=== PATIENT | female | born 1990 | race Caucasian/White ===

== ENCOUNTER 2024-03-08 08:32 | Outpatient (CLI) | payer OTHER, SELFPAY ==
[2024-03-08 08:41] LABS: MANUAL DIFFERENTIAL MANUAL DIFFERENTIAL (MANUAL DIFF)
[2024-03-08 09:06] LABS: Basophils # 0.1 K/mm3 (0-0.2); Basophils % 0.8 % (0.1-2.0); Eosinophils # 0.2 K/mm3 (0.0-0.4); Eosinophils % 1.8 % (0.1-12.0); Hematocrit 41.8 % (37.0-47.0); Hemoglobin 13.3 g/dL (12.2-16.2); Lymphocytes # 2.2 K/mm3 (0.7-4.5); Mean Corpuscular HGB Conc 31.9 g/dL (31.8-35.4); Mean Corpuscular Hemoglobin 27.7 pg (27.0-31.2); Mean Corpuscular Volume 86.7 fl (81-99); Mean Platelet Volume 11.8 fl (7.4-10.4); Monocytes # 0.4 K/mm3 (0.1-1.0); Monocytes % 4.6 % (1.7-9.3); Neutrophils # 5.2 K/mm3 (1.8-7.8); Neutrophils % 64.7 % (37.0-80.0); Platelet Count 192 K/mm3 (142-424); Red Blood Count 4.82 M/mm3 (4.20-5.40); Red Cell Distribution Width 14.9 % (11.5-17.5)
[2024-03-08 09:42] LABS: Albumin Level 3.9 g/dl (3.5-5.0); Anion Gap 9.4 mEq/L (5-15); Chloride 108 mmol/L (98-107); Potassium 4.4 mmoL/L (3.5-5.1); Sodium 136 mmol/L (136-145); VLDL Cholesterol 26 mg/dL (0-40)
[2024-03-08 09:52] LABS: Direct LDL Cholesterol 105.57 mg/dL (100-129)
[2024-03-08 09:54] LABS: Triiodothryronine (T3) Uptake 33 % (23.5-40.5)
[2024-03-08 09:55] LABS: Free Thyroxine Index 2.9 ug/dL (5.93-13.13); T4 (Thyroxine) 8.7 ug/dl (5.53-11.0)
[2024-03-08 10:03] LABS: Alanine Aminotransferase 30 U/L (12-78); Alkaline Phosphatase 125 U/L (38-126); Aspartate Amino Transferase 28 U/L (14-36); Bilirubin,Total 1.1 mg/dl (0.2-1.3); Blood Urea Nitrogen 12 mg/dl (7-17); Carbon Dioxide 23 mmol/L (22.0-30.0); Estimated Glomerular Filt Rate 114 ml/min (>60); GFR (African American) 138 ML/MIN (>60)
[2024-03-08 10:04] LABS: Albumin/Globulin Ratio 1.2 (1.1-1.8); Calcium 8.8 mg/dl (8.4-10.2); Chol/HDL Ratio 3.8 (1-3.5); Cholesterol 195 mg/dl (140-200); Globulin 3.2 g/dL (1.3-3.2); Glucose 112 mg/dl (74-100); HDL Cholesterol 52 mg/dl (40-60); Iron 59 ug/dL (37-170); Total Protein,Serum 7.1 g/dl (6.3-8.2); Triglycerides 132 mg/dl (30-150)
[2024-03-08 10:09] LABS: Thyroid Stimulating Hormone 3.28 uIU/mL (0.465-4.68)
[2024-03-08 10:14] LABS: Total Iron Binding Capacity 347 ug/dL (265-497)
[2024-03-08 14:15] LABS: Eosinophils % 1 % (0-3); Lymphocytes % 29 % (10-50); Monocytes % 4 % (2-9); Neutrophils % 66 % (42-76); Total Cells Counted 100
[2024-03-08 14:16] LABS: Platelet Estimate Normal; RBC Morphology Normal
[2024-03-09 08:30] LABS: Thyroid Peroxidase Antibodies <9 IU/mL (0-34)
[2024-03-10 06:15] LABS: Thyroid Stimulating Immunoglob <0.10 IU/L (0.00-0.55)
[2024-03-10 13:11] LABS: Calcium, Ionized 4.9 mg/dL (4.5-5.6)
[2024-03-12 06:05] LABS: D001-IgE D pteronyssinus 0.28 kU/L (Class 0/I); D002-IgE D farinae 0.19 kU/L (Class 0/I); E001-IgE Cat Dander <0.10 kU/L (Class 0); E005-IgE Dog Dander <0.10 kU/L (Class 0); E072-IgE Mouse Urine <0.10 kU/L (Class 0); G002-IgE Bermuda Grass <0.10 kU/L (Class 0); G006-IgE Timothy Grass <0.10 kU/L (Class 0); I006-IgE Cockroach, German <0.10 kU/L (Class 0); Immunoglobulin E, Total 128 IU/mL (6-495); M001-IgE Penicillium chrysogen <0.10 kU/L (Class 0); M002-IgE Cladosporium herbarum <0.10 kU/L (Class 0); M003-IgE Aspergillus fumigatus <0.10 kU/L (Class 0); M006-IgE Alternaria alternata <0.10 kU/L (Class 0); T001-IgE Maple/Box Elder <0.10 kU/L (Class 0); T003-IgE Common Silver Birch <0.10 kU/L (Class 0); T006-IgE Cedar, Mountain <0.10 kU/L (Class 0); T007-IgE Oak, White <0.10 kU/L (Class 0); T008-IgE Elm, American <0.10 kU/L (Class 0); T010-IgE Walnut <0.10 kU/L (Class 0); T011-IgE Maple Leaf Sycamore <0.10 kU/L (Class 0); T014-IgE Cottonwood <0.10 kU/L (Class 0); T015-IgE Ash, White <0.10 kU/L (Class 0); T022-IgE Pecan, Hickory <0.10 kU/L (Class 0); T070-IgE White Mulberry <0.10 kU/L (Class 0); W001-IgE Ragweed, Short <0.10 kU/L (Class 0); W011-IgE Thistle, Russian <0.10 kU/L (Class 0); W014-IgE Pigweed, Common <0.10 kU/L (Class 0); W018-IgE Sheep Sorrel <0.10 kU/L (Class 0)
== END 2024-03-08 23:59 | disposition home or self-care (01) ==
LOC: LAB 08:40
PROVIDERS: PCP Internal Medicine; Visit Provider Nurse Practitioner
DX: R21 Rash and other nonspecific skin eruption (principal)
CPT/HCPCS: 36415; 80053; 80061; 82330; 82785; 83540; 83550; 84436; 84443; 84445; 84479; 85007; 85014; 85018; 85048; 85049; 86003; 86376

== ENCOUNTER 2024-07-27 06:21 | Outpatient (CLI) | payer OTHER, SELFPAY ==
--- NOTE | 2024-07-27 06:35 | CT_ITS ---
FINAL REPORT TECHNIQUE: Thin section axial images were obtained through the paranasal sinuses without contrast. Coronal and sagittal reconstruction images were obtained from the axial data. Exam was performed using dose reduction techniques. CLINICAL HISTORY: sinus pressure FINDINGS: There is mucoperiosteal thickening of the bilateral maxillary sinuses with air-fluid levels bilaterally. There is mucosal thickening of the sphenoid sinus, ethmoid air cells, and frontal sinus. The right maxillary infundibulum is occluded by mucoperiosteal thickening. The left is patent. There is very mild right nasal septal deviation. The mastoid air cells are clear. There is no acute osseous abnormality. Remaining soft tissues are within normal limits. IMPRESSION: Acute bilateral maxillary sinusitis. Chronic pansinusitis. Authenticated and ERN
== END 2024-07-27 23:59 | disposition home or self-care (01) ==
LOC: RAD 06:22
PROVIDERS: PCP Internal Medicine; Visit Provider Nurse Practitioner
DX: J32.9 Chronic sinusitis, unspecified (principal)
CPT/HCPCS: 70486

== ENCOUNTER 2024-07-30 14:51 | Outpatient (CLI) | payer OTHER, SELFPAY ==
[2024-07-30 16:00] LABS: Basophils # 0.1 K/mm3 (0-0.2); Basophils % 0.7 % (0.1-2.0); Eosinophils # 0.2 K/mm3 (0.0-0.4); Eosinophils % 1.5 % (0.1-12.0); Hematocrit 39.2 % (37.0-47.0); Hemoglobin 12.9 g/dL (12.2-16.2); Lymphocytes # 3.1 K/mm3 (0.7-4.5); Lymphocytes % 29.9 % (10-50); Mean Corpuscular HGB Conc 32.9 g/dL (31.8-35.4); Mean Corpuscular Hemoglobin 28.2 pg (27.0-31.2); Mean Corpuscular Volume 85.6 fl (81-99); Mean Platelet Volume 13.8 fl (7.4-10.4); Monocytes # 0.8 K/mm3 (0.1-1.0); Monocytes % 8.2 % (1.7-9.3); Neutrophils # 6.1 K/mm3 (1.8-7.8); Neutrophils % 59.5 % (37.0-80.0); Platelet Count 216 K/mm3 (142-424); Red Blood Count 4.58 M/mm3 (4.20-5.40); Red Cell Distribution Width 13.2 % (11.5-17.5); White Blood Count 10.3 K/mm3 (4.8-10.8)
[2024-07-30 16:26] LABS: Albumin Level 4.2 g/dl (3.5-5.0); Chloride 106 mmol/L (98-107); Potassium 4.1 mmoL/L (3.5-5.1); Sodium 138 mmol/L (136-145)
[2024-07-30 16:28] LABS: Blood Urea Nitrogen 15 mg/dl (7-17); Estimated Glomerular Filt Rate 82 ml/min (>60); GFR (African American) 99 ML/MIN (>60)
[2024-07-30 16:29] LABS: Alanine Aminotransferase 47 U/L (12-78); Alkaline Phosphatase 140 U/L (38-126); Anion Gap 13.1 mEq/L (5-15); Aspartate Amino Transferase 56 U/L (14-36); Bilirubin,Direct 0.3 mg/dl (0.0-0.4); Bilirubin,Indirect 0.4 mg/dL (0.0-0.9); Bilirubin,Total 0.7 mg/dl (0.2-1.3); Bilirubin,Unconjugated 0.4 mg/dL (0.0-1.1); Calcium 9.1 mg/dl (8.4-10.2); Carbon Dioxide 23 mmol/L (22.0-30.0); Cholesterol 190 mg/dl (140-200); Glucose 106 mg/dl (74-100); Total Protein,Serum 6.8 g/dl (6.3-8.2); Triglycerides 323 mg/dl (30-150)
[2024-07-30 16:30] LABS: Magnesium 1.9 mg/dl (1.6-2.3)
[2024-07-30 16:41] LABS: Direct LDL Cholesterol 102.01 mg/dL (100-129)
[2024-07-30 16:43] LABS: Free T4 (Free Thyroxine) 0.86 ng/dl (0.78-2.19)
[2024-07-30 16:59] LABS: Chol/HDL Ratio 4.3 (1-3.5); HDL Cholesterol 44 mg/dl (40-60); VLDL Cholesterol 65 mg/dL (0-40)
[2024-07-30 17:03] LABS: Thyroid Stimulating Hormone 2.16 uIU/mL (0.465-4.68)
[2024-07-30 17:20] LABS: Hemoglobin A1C 5.8 % (4.0-6.0)
== END 2024-07-30 23:59 | disposition home or self-care (01) ==
LOC: LAB 14:55
PROVIDERS: PCP Internal Medicine; Visit Provider Physician Assistant
DX: R06.00 Dyspnea, unspecified (principal); I10 Essential (primary) hypertension; R63.1 Polydipsia; R63.5 Abnormal weight gain
CPT/HCPCS: 80048; 80061; 80076; 83036; 83735; 84439; 84443; 85025

== ENCOUNTER 2024-08-19 08:53 | Outpatient (CLI) | payer OTHER, SELFPAY ==
--- NOTE | 2024-08-19 08:58 | XR_ITS ---
FINAL REPORT CLINICAL HISTORY: Lt Knee Pain COMPARISON: None FINDINGS: LEFT KNEE 3 views of the left knee were obtained. There is no acute fracture or dislocation. There are mild hypertrophic changes at the medial joint margin and along the undersurface of the patella. Soft tissues are unremarkable. IMPRESSION: Mild changes of osteoarthritis without acute bony abnormality. Reviewed, Interpreted and Dictated by Ivan Diaz MD Transcribed by Serena Najera Authenticated and [facility]
== END 2024-08-19 23:59 | disposition home or self-care (01) ==
LOC: RAD 08:54
PROVIDERS: PCP Internal Medicine; Visit Provider Orthopaedic Surgery
DX: M25.562 Pain in left knee (principal)
CPT/HCPCS: 73562

== ENCOUNTER 2025-04-11 15:15 | Outpatient (CLI) | payer OTHER, SELFPAY ==
--- OUTSIDE RECORDS SUMMARY | 2025-04-11 15:18 | XMS_ITS | Clinical Summary ---
Author Organization [facility] Address [address] [place] [address] Care Team Providers Care Dough Raiser Name Role Phone Philip Ignacio MD Primary Care Provid er Allergies No known active allergies Medications NIFEdipine CC (ADALAT CC) 30 MG 24 hr tablet Take 1 tablet by mouth 2 (Two) Times a Day for 2 doses. 2 tablet 07/20/2023 11:57 AM EST 07/20/2023 Active Active Problems Problem Noted Date Diagnosed Date Hypertension in , preeclampsia, severe, delivered 07/18/2023 Status post section 07/15/2023 Status post bilateral salpingectomy 07/15/2023 Uterine size-date discrepancy in third trimester 06/10/2023 Chronic hypertension affecting 023 Assessment & Plan (07/10/2023 3:06 PM EST): Currently on labetalol 100 mg 1-2 times per day. Blood pressure 135/93 and 139/77. Patient currently scheduled for section on July 15. Patient with normal serum labs on July 07. Urine dip today with 3-4+ protein. Patient's growth ultrasound is normal today. Assessment & Plan (06/10/2023 8:40 AM EST): Patient returns today for follow-up with a history of chronic hypertension. She is currently prescribed labetalol 100 mg 3 times daily. She reports that she is not taking it but checking her blood pressures regularly at home and that her blood pressures are normal at home. Blood pressure today is 136/84. She has no protein in her urine. Patient was counseled regarding signs and symptoms of preeclampsia including headache scotomata epigastric pain and decreased movement. She will contact her OB provider immediately if she notices any decreased movement or any signs and symptoms of preeclampsia. Patient had an abnormal 1 hour glucose screen however her 3-hour was entirely normal. She reports that her 3-hour test was done just a couple weeks ago. Ultrasound today demonstrates a baby overall at 78th percentile but with a large AC. We will rescan the patient again in 4 weeks to assess weight heading into delivery time. The patient's chronic hypertension even though she has voluntarily stopped taking her medication we would recommend starting testing beginning now at 32 weeks gestation for chronic hypertension. Assessment & Plan (04/15/2023 8:34 AM EDT): Patient presents today for follow-up growth ultrasound. Patient reports taking the labetalol 100 mg daily sometimes twice daily. Blood pressure today 149/72 and on repeat was 133/75. She is not currently taking a blood pressure log. We discussed recent Chap trial and discussed goals of blood pressures of 140/90. Patient will return in 4 weeks for repeat growth ultrasound and completion of anatomy Obesity in , antepartum 02/04/2023 Assessment & Plan (04/15/2023 8:35 AM EDT): Patient presents today for completion of anatomy. Aortic arch, ductal arch and profile still suboptimal after today's ultrasound. Patient return in 4 weeks for ultrasound. Previous section 05/12/2020 Morbid obesity with BMI of 40.0-44.9, adult 04/27 Delivery of by section 2019 History of pre-eclampsia Overview (12/17/2022): with G1 Assessment & Plan (04/15/2023 8:08 AM EDT): Patient currently on aspirin for preeclampsia prevention. Resolved Problems Problem Noted Date Diagnosed Date Resolved Date 07/11/2023 07/15/2023 wound disruption 06/29/2020 Immunizations Immunization Administration Dates Next Due Fluzone (or Fluarix & Flulaval for VFC) >6mos Hep B, Adolescent or Pediatric 12/08/2000,2000 MMR 11/10/2000 Tdap 11/04/2014,12/10/2005 Family History Medical History Relation Name Comments Hypertension Father Breast cancer Mother at age 52 from breast cancer Colon cancer Paternal Grandfather Ovarian cancer Neg Hx Uterine cancer Neg Hx Relation Name Status Comments Father Mother Gastroparesis Paternal Grandfather Social History Tobacco Use Types Packs/Day Years Used Date Smoking Tobacco: Never Smokeless Tobacco: Never Tobacco Cessation:Counseling Given: Not Answered Alcohol Use Standard Drinks/Week Comments No 0 (1 standard drink = 0.6 oz pur e alcohol) [facility] Utilities Answer Date Recorded In the past 12 months has th e [employer], gas, oil, or water company threatened to shut off services in your home? No 07/15/2023 AUDIT-C Answer Date Recorded Q1: How often do you have a drink containing alcohol? Never 07/15/2023 Q2: How many drinks containi ng alcohol do you have on a typical day when you are drinking? Patient does not drink Q3: How often do you have si x or more drinks on one occasion? Never 07/15/2023 Overall Financial Resource Strain (CARDIA) Answe r Date Recorded How hard is it for you to pa y for the very basics like food, housing, medical care, and heating? Not hard at all 07/15/2023 PHQ-2 Answer Date Recorded Retired PHQ-9: Brief Depression Severity Measure Score 0 07/15/2023 Exercise Vital Sign Answer Date Recorde d On average, how many days pe r week do you engage in moderate to strenuous exercise (like a brisk walk)? 4 days 07/15/2023 On average, how many minutes do you engage in exercise at this level? 40 min 07/15/2023 Hunger Vital Sign Answer Date Recorded Within the past 12 months, y ou worried that your food would run out before you got the money to buy more. Never true 07/15/20 23 Within the past 12 months, t he food you bought just didn't last and you didn't have money to get more. Never true 07/15/2023 PRAPARE - Transportation Answer Date Re corded In the past 12 months, has l ack of transportation kept you from medical appointments or from getting medications? No 06/27 In the past 12 months, has l ack of transportation kept you from meetings, work, or from getting things needed for daily living? No 07/15/2023 [place] Depression Scale Answer Date Recorded Retired [place] Depression Score 0 09/02/2023 Retired EPD Scale: Thought of Harming Self Unrec ognized value 09/02/2023 Abuse Screen Answer Date Recorded Feels Unsafe at Home or Work/School no 07/15/2023 Feels Threatened by Someone no 06/27 Does Anyone Try to Keep You From Having Contact with Others or Doing Things Outside Your Home? no 07/15/2023 Physical Signs of Abuse Present no 07/15/2023 Housing Stability Answer Date Recorded Current Living Arrangements home 06/27 Potentially Unsafe Housing Conditions none 07/15/2023 Family and Community Support Answer Nain e Recorded If for any reason you need h elp with day-to-day activities such as bathing, preparing meals, shopping, managing finances, etc., do you get the help you need? I get all the help I need 07/15/2023 How often do you feel lonely or isolated from those around you? Never 07/15/2023 Employment Answer Date Recorded Do you want help finding or keeping work or a job? I do not need or want help 07/15/2023 Disabilities Answer Date Recorded Difficulty Concentrating, Remembering or Making Decisions no 07/15/2023 Difficulty Managing Errands Independently no 07/15/2023 Education Answer Date Recorded Do you want help with school or training? For example, starting or completing job training or getting a high school diploma, GED or equivalent No 07/15/2023 Preferred Language Micronesian 07/15/2023 PHQ-2 Answer Date Recorded Retired PHQ-9: Brief Depression Severity Measure Score 0 07/15/2023 Comments No Sex and Gender Information Value Date Recorded Sex Assigned at Not on file Legal Sex Female 1:25 PM EDT Gender Identity Not on file Sexual Orientation Not on file Last Filed Vital Signs Vital Sign Reading Time Taken Comments Blood Pressure 128/88 09/02/2023 2:11 PM EST Pulse 80 07/20/2023 9:11 AM EST Temperature 36.7 C (98 F) 07/20/2023 9:11 AM EST Respiratory Rate 18 07/20/2023 9:11 AM EST Oxygen Saturation 97% 07/19/2023 11:22 AM EST Inhaled Oxygen Concentration - - Weight 116 kg (256 lb 9.6 oz) 09/02/2023 2:11 PM EST Height 167.6 cm (5' 6 ) 09/02/2023 2:11 PM EST Body Mass Index 41.42 09/02/2023 2:11 PM EST Plan of Treatment Health Maintenance Due Date Last Done Comments Annual Gynecologic Pelvic an d Breast Exam 1989 ANNUAL PHYSICAL 10/23/2016 TDAP/TD VACCINES (3 - Td or Tdap) 11/04/2024 11/04/2014, 12/10/2005 COVID-19 Vaccine ( - 2024-2 6 season) 2025 05/04/2021, 04/06/2021 INFLUENZA VACCINE 04/27/2025 04/27/2020 HEPATITIS C SCREENING Completed 12/31/2022 , 06/08/2021 Pneumococcal Vaccine 0-49 Aged Out No longer eligible based on patient's age to complete this topic Medical Devices Implanted Type Area Management Manager Device Identifier Shelf Expiration Date Model / Serial / Lot Hemost Abs Surgicel Pwdr 3gm - [id number] Implanted:Qty : 1 on 05/12/2020 by Carolin Roberts MD at [facility] Implant N/A: Uterus ETHICON DIV OF J AND J [id number] / / [id number] Singh Adhs I/O Interceed Abs 3x4in - [id number] Implanted:Qty : 1 on 07/15/2023 by Maria M Chris MD at [facility] Implant N/A: Uterus ETHICON DIV OF J AND J 05/27/2027 [id number] / / [id number] Procedures Procedure Name Priority Date/Time Associated Diagnosis Comments OBSTETRIC PANEL Routine 12/31/2022 3:36 PM EDT care, antepartum from Last 3 Months or Most Recently Relevant to Health Maintenance Results * (ABNORMAL) Obstetric Panel (12/31/2022 3:36 PM EDT) Hepatitis B Surface Ag Negative Negative [facility] Hep C Virus Ab Non Reactive Non Reactive [facility] Comment: HCV antibody alone does not differentiate between previously resolved infection and active infection. Equivocal and Reactive HCV antibody results should be followed up with an HCV RNA test to support the diagnosis of active HCV infection. RPR Non Reactive Non Reactive [facility] Rubella Antibodies, IgG 2.30 Immune >0.99 index [facility] Comment: Non-immune <0.90 Equivocal 0.90 - 0.99 Immune >0.99 ABO Type A [facility] Rh Factor Positive [facility] Comment: Please note: Prior records for this patient's ABO / Rh type are not available for additional verification. Antibody Screen Negative Negative [facility] WBC 11.7(H) 3.4 - 10.8 x10E3/uL [facility] RBC 4.36 3.77 - 5.28 x10E6/uL [facility] Hemoglobin 12.7 11.1 - 15.9 g/dL [facility] Hematocrit 37.2 34.0 - 46.6 % [facility] MCV 85 79 - 97 fL [facility] MCH 29.1 26.6 - 33.0 pg [facility] MCHC 34.1 31.5 - 35.7 g/dL [facility] RDW 13.5 11.7 - 15.4 % [facility] Platelets 181 150 - 450 x10E3/uL [facility] Neutrophil Rel % 73 Not Estab. % [facility] Lymphocyte Rel % 19 Not Estab. % [facility] Monocyte Rel % 7 Not Estab. % [facility] Eosinophil Rel % 1 Not Estab. % [facility] Basophil Rel % 0 Not Estab. % [facility] Neutrophils Absolute 8.5(H) 1.4 - 7.0 x10E3/uL [facility] Lymphocytes Absolute 2.3 0.7 - 3.1 x10E3/uL [facility] Monocytes Absolute 0.8 0.1 - 0.9 x10E3/uL [facility] Eosinophils Absolute 0.1 0.0 - 0.4 x10E3/uL [facility] Basophils Absolute 0.0 0.0 - 0.2 x10E3/uL [facility] Immature Granulocyte Rel % 0 Not Estab. % [facility] Immature Grans Absolute 0.0 0.0 - 0.1 x10E3/uL [facility] Blood 12/31/2022 3:36 PM EDT 12/31/2022 Narrative [facility] - 01/05/2023 4:35 PM EDT Performed at: 01 - [facility] [address] [place], [place] [id number] Enterprise Engineer: Grant Romero PhD, Phone: [phone] Patient Fasting: Y us Maria M Chris MD LAB BLOOD ORDERABLES Final Resu lt [facility] ([facility]) [address] [place] [address], [facility] [address] [place] [address], from Last 3 Months or Most Recently Relevant to Health Maintenance Insurance O Member Subscriber Plan / Payer (Ef fective 2023-Present) Name:Serena Marte Relation to Subscriber:Spouse Name:ZAKIYA MARTE Date of :1988 (Home) Address: [address] [place] [address] Payer ID:[id number] (NAIC) Type:Not on file Address: [facility] [id number] Advance Directives * CPR (Attempt to Resuscitate) (Latest Code Status on File) Date Activated Date Inactivated Comments 07/15/2023 10:59 AM 07/20/2023 2:22 PM Question Answer Comments Code Status (Patient has no pulse and is not breathing): CPR (Attempt to Resuscitate) Medical Interventions (Patie nt has pulse or is breathing): Full * CPR (Attempt to Resuscitate) Date Activated Date Inactivated Comments 07/15/2023 6:17 AM 07/15/2023 10:59 AM Question Answer Comments Code Status (Patient has no pulse and is not breathing): CPR (Attempt to Resuscitate) Medical Interventions (Patie nt has pulse or is breathing): Full Support Level Of Support Discussed With: Patient * CPR (Attempt to Resuscitate) Date Activated Date Inactivated Comments 05/12/2020 10:47 AM 05/15/2020 4:42 PM Question Answer Comments Code Status (Patient has no pulse and is not breathing): CPR (Attempt to Resuscitate) Medical Interventions (Patie nt has pulse or is breathing): Full * CPR (Attempt to Resuscitate) Date Activated Date Inactivated Comments 05/12/2020 5:44 AM 05/12/2020 10:47 AM Question Answer Comments Code Status (Patient has no pulse and is not breathing): CPR (Attempt to Resuscitate) Medical Interventions (Patie nt has pulse or is breathing): Full Care Teams Dough Raiser Relationship Specialty Start Date End Date Philip Ignacio MD [address] [place] [address] PCP - General Family Medicine 11/27/22
[2025-04-11 18:02] LABS: Chloride 104 mmol/L (98-107); Potassium 4.1 mmoL/L (3.5-5.1); Sodium 138 mmol/L (136-145)
[2025-04-11 18:05] LABS: Anion Gap 14.1 mEq/L (5-15); Blood Urea Nitrogen 12 mg/dl (7-17); Calcium 9.1 mg/dl (8.4-10.2); Carbon Dioxide 24 mmol/L (22.0-30.0); Creatinine,Serum 0.70 mg/dl (0.52-1.04); Estimated Glomerular Filt Rate 95 ml/min (>60); GFR (African American) 115 ML/MIN (>60); Glucose 136 mg/dl (74-100)
[2025-04-11 18:07] LABS: Hematocrit 38.6 % (37.0-47.0); Hemoglobin 12.5 g/dL (12.2-16.2); Immature Granulocytes % 0.3 %; Mean Corpuscular HGB Conc 32.4 g/dL (31.8-35.4); Mean Corpuscular Hemoglobin 27.5 pg (27.0-31.2); Mean Corpuscular Volume 85.0 fl (81-99); Nucleated Red Blood Cells % 0 %; Platelet Count 233 K/mm3 (142-424); Red Blood Count 4.54 M/mm3 (4.20-5.40); Red Cell Distribution Width-SD 41.9 fL; White Blood Count 10.1 K/mm3 (4.8-10.8)
[2025-04-11 18:23] LABS: Troponin I < 0.01 ng/ml (0.00-0.034)
== END 2025-04-11 23:59 | disposition home or self-care (01) ==
LOC: LAB 15:16
PROVIDERS: PCP Internal Medicine; Visit Provider Nurse Practitioner
DX: I10 Essential (primary) hypertension (principal); R29.898 Other symptoms and signs involving the musculoskeletal system
CPT/HCPCS: 36415; 80048; 84484; 85025

== ENCOUNTER 2025-04-13 07:57 | Outpatient (CLI) | payer OTHER, SELFPAY ==
--- OUTSIDE RECORDS SUMMARY | 2025-04-13 07:59 | XMS_ITS | Clinical Summary ---
Author Organization [facility] Address [address] [place] [address] Care Team Providers Care Linter Tender Name Role Phone Philip Ignacio MD Primary [...] drink = 0.6 oz pur e alcohol) [facility] Utilities Answer Date Recorded In the past 12 months has th e [employer], gas, oil, or water company threatened to [...] things needed for daily living? No 07/15/2023 [place] Depression Scale Answer Date Recorded Retired [place] Depression Score 0 09/02/2023 Retired EPD Scale: [...] GED or equivalent No 07/15/2023 Preferred Language German 07/15/2023 PHQ-2 Answer Date Recorded Retired PHQ-9: [...] this topic Medical Devices Implanted Type Area Showroom Salesperson Device Identifier Shelf Expiration Date Model / Serial / Lot Hemost Abs Surgicel Pwdr 3gm - [id number] Implanted:Qty : 1 on 05/12/2020 by Carolin Roberts MD at [facility] Implant N/A: Uterus ETHICON DIV OF J AND J [id number] / / [id number] Singh Adhs I/O Interceed Abs 3x4in - [id number] Implanted:Qty : 1 on 07/15/2023 by Maria M Chris MD at [facility] Implant N/A: Uterus ETHICON DIV OF J AND J 05/27/2027 [id number] / / [id number] Procedures Procedure Name Priority Date/Time Associated Diagnosis [...] 4:35 PM EDT Performed at: 01 - [facility] [address] [place], [place] [id number] Ignition Specialist: Grant Romero PhD, Phone: [phone] Patient Fasting: Y us Maria M Chris MD LAB BLOOD ORDERABLES Final Resu lt [facility]) [address] [place] [address], [facility] [address] [place] [address], from Last 3 Months or Most Recently Relevant to Health Maintenance Insurance O Member Subscriber Plan / Payer (Ef fective 2023-Present) Name:Serena Marte Relation to Subscriber:Spouse Name:ZAKIYA MARTE Date of :1988 (Home) Address: [address] [place] [address] Payer ID:[id number] (NAIC) Type:Not on file Address: [facility] [id number] [address] Advance Directives * CPR (Attempt to [...] pulse or is breathing): Full Care Teams Linter Tender Relationship Specialty Start Date End Date Philip Ignacio MD [address] [place] [address] PCP - General Family Medicine 11/27/22
[2025-04-13 09:16] LABS: Alanine Aminotransferase 29 U/L (12-78); Albumin Level 4.0 g/dl (3.5-5.0); Alkaline Phosphatase 107 U/L (38-126); Aspartate Amino Transferase 28 U/L (14-36); Bilirubin,Direct 0.1 mg/dl (0.0-0.4); Bilirubin,Indirect 0.8 mg/dL (0.0-0.9); Bilirubin,Total 0.9 mg/dl (0.2-1.3); Bilirubin,Unconjugated 0.8 mg/dL (0.0-1.1); Cholesterol 170 mg/dl (140-200); HDL Cholesterol 50 mg/dl (40-60); Total Protein,Serum 6.7 g/dl (6.3-8.2); Triglycerides 104 mg/dl (30-150)
== END 2025-04-13 23:59 | disposition home or self-care (01) ==
LOC: LAB 07:57
PROVIDERS: PCP Internal Medicine; Visit Provider Nurse Practitioner
DX: R74.8 Abnormal levels of other serum enzymes (principal)
CPT/HCPCS: 36415; 80061; 80076

== ENCOUNTER 2025-06-15 10:04 | Outpatient (CLI) | payer OTHER, SELFPAY ==
[2025-06-15 10:47] LABS: Alanine Aminotransferase 33 U/L (12-78); Albumin Level 4.6 g/dl (3.5-5.0); Alkaline Phosphatase 137 U/L (38-126); Anion Gap 11.1 mEq/L (5-15); Aspartate Amino Transferase 30 U/L (14-36); Bilirubin,Direct 0.0 mg/dl (0.0-0.4); Bilirubin,Indirect 1.2 mg/dL (0.0-0.9); Bilirubin,Total 1.2 mg/dl (0.2-1.3); Bilirubin,Unconjugated 1.1 mg/dL (0.0-1.1); Blood Urea Nitrogen 10 mg/dl (7-17); Calcium 9.1 mg/dl (8.4-10.2); Carbon Dioxide 22 mmol/L (22.0-30.0); Chloride 104 mmol/L (98-107); Cholesterol 165 mg/dl (140-200); Creatinine,Serum 0.60 mg/dl (0.52-1.04); Estimated Glomerular Filt Rate 114 ml/min (>60); GFR (African American) 138 ML/MIN (>60); Glucose 120 mg/dl (74-100); HDL Cholesterol 46 mg/dl (40-60); Magnesium 1.7 mg/dl (1.6-2.3); Potassium 4.1 mmoL/L (3.5-5.1); Sodium 133 mmol/L (136-145); Total Protein,Serum 7.8 g/dl (6.3-8.2); Triglycerides 131 mg/dl (30-150)
[2025-06-15 10:54] LABS: Hematocrit 42.4 % (37.0-47.0); Hemoglobin 14.2 g/dL (12.2-16.2); Immature Granulocytes % 0.2 %; Mean Corpuscular HGB Conc 33.5 g/dL (31.8-35.4); Mean Corpuscular Hemoglobin 28.3 pg (27.0-31.2); Mean Corpuscular Volume 84.5 fl (81-99); Nucleated Red Blood Cells % 0 %; Platelet Count 220 K/mm3 (142-424); Red Blood Count 5.02 M/mm3 (4.20-5.40); Red Cell Distribution Width-SD 39.4 fL; White Blood Count 10.9 K/mm3 (4.8-10.8)
[2025-06-15 11:06] LABS: Troponin I < 0.01 ng/ml (0.00-0.034)
[2025-06-15 11:17] LABS: Thyroid Stimulating Hormone 1.32 uIU/mL (0.465-4.68)
[2025-06-15 12:05] LABS: Hemoglobin A1C 6.2 % (4.0-6.0)
[2025-06-15 17:56] LABS: Free T4 (Free Thyroxine) 1.01 ng/dl (0.78-2.19)
== END 2025-06-15 23:59 | disposition home or self-care (01) ==
LOC: LAB 10:04
PROVIDERS: PCP Internal Medicine; Visit Provider Physician Assistant
DX: I10 Essential (primary) hypertension (principal); R11.2 Nausea with vomiting, unspecified; R19.7 Diarrhea, unspecified; Z13.1 Encounter for screening for diabetes mellitus
CPT/HCPCS: 36415; 80048; 80061; 80076; 83036; 83735; 84439; 84443; 84484; 85025